=== PATIENT | female | born 1970 | race African-American/Black ===

== ENCOUNTER 2024-03-22 08:38 | Emergency (ER) | payer OTHER ==
[2024-03-22] MEDS ORDERED: Ibuprofen 200 MG TAB ONE (09:01)
[2024-03-22 09:35] LABS: #Basophils 0.02 10x3/uL (0.0-0.2); #Eosinophils 0.07 10x3/uL (0.0-0.5); #Monocytes 0.49 10x3/uL (0.0-1.1); #Neutrophils 4.42 10x3/uL (1.5-8.4); %Basophils 0.3 % (0.0-2.0); %Lymphocytes 27.7 % (18.0-47.0); %Monocytes 7.1 % (0.0-10.0); %Neutrophils 63.8 % (40.0-75.0); Hematocrit 35.4 % (34.9-44.5); Hemoglobin 11.5 g/dL (12.0-15.5); Mean Corpuscular HGB CONC 32.5 g/dL (32.0-36.0); Mean Corpuscular Hemoglobin 27.4 pg (27.0-33.0); Mean Corpuscular Volume 84.3 fL (81.6-98.3); Mean Platelet Volume 9.5 fL (7.4-10.4); Platelet Count 274 10x3/uL (150-450); RBC Distribution Width 12.8 % (11.5-14.5); White Blood Cell (WBC) Count 6.9 10x3/uL (3.5-10.5)
[2024-03-22 09:57] LABS: ALT (SGPT) 14 U/L (8-55); AST (SGOT) 13 U/L (5-34); Albumin 4.1 g/dL (3.5-5.0); Alkaline Phosphatase 67 U/L (40-110); Anion Gap 14 mmol/L (10-20); BUN (Urea Nitrogen) 17 mg/dL (9.8-20.1); Bilirubin, Total 0.3 mg/dL (0.2-1.2); Calc. Creatinine Clearance 0 mL/min (70-130); Calcium 9.6 mg/dL (7.8-10.44); Carbon Dioxide 23 mmol/L (22-29); Chloride 107 mmol/L (98-107); Estimated GFR 67; Glucose 112 mg/dL (70-105); Potassium 4.1 mmol/L (3.5-5.1); Protein, Total 7.1 g/dL (6.0-8.3); Sodium 140 mmol/L (136-145)
[2024-03-22 10:00] LABS: Troponin I Less than 0.010 ng/mL (< 0.028)
== END 2024-03-22 10:33 | disposition home or self-care (01) ==
LOC: CSHERS 08:38
DX: S20.212A Contusion of left front wall of thorax, initial encounter (principal); I10 Essential (primary) hypertension; V49.88XA Car occupant (driver) (passenger) injured in other specified transport accidents, initial encounter
CPT/HCPCS: 36415; 71045; 80053; 84484; 85025; 93005